=== PATIENT | male | born 1950 | race Caucasian/White ===

== ENCOUNTER 2020-06-08 09:02 | Emergency (ER) | payer OTHER, MEDICARE ==
[~2020-06-08] VITALS: Ht 188 cm; Wt 125.0 kg
[~2020-06-08 09:02] MED LIST: ACET325 PO; ALOGLIPTIN25 MG PO; AMLODIPINE BESY10 MG PO; ASMANEX220 MC3 INH; Aspir 8181 MG PO; BASAGLAR K100 UNIT/1 SC; BUPROPION XL150 M1 PO; CHLO25B PO; FINA5 PO; Glucose4 GM PO; Hydroxyzine HCl50 MG PO; IBUP600 PO; LAMICTAL200 MG PO; METAMUCIL POWD575 GM PO; NOVOLOG FL100 UNIT/1 SC; OXYB5 PO; PANT40 PO; PRAZ5 PO; PREG75 PO; QUET300 PO; RIFA550T2 PO; STIOLTO RESPIMAT4 GM INH; TADALAFIL5 M1 PO; TRULICITY1.5 MG/0.5 SC; VITAMIN D-40010 MCG PO; ZESTRIL40 M1 PO
[2020-06-08] MEDS ORDERED: ALBU90OI INH (09:25)
[2020-06-08] MEDS ORDERED: ATOR20 PO (09:26)
[2020-06-08] MEDS ORDERED: DICLOFENAC SOD100 GM TP (09:28)
--- NOTE | 2020-06-08 11:07 | NUR ---
PT TRANSPORTED TO [facility]. AGREES WITH PLANNED PROCEDURE. DR. DAMON TO SEE PT AND OBTAINED CONSENT. DR. STEVENS INTERVIEWING PT FOR ANESTHESIA.
--- NOTE | 2020-06-08 11:18 | NUR ---
06/08/20 1118 CHRIS TONG History, Chart, Medications and Allergies reviewed before start of procedure. O2 VIA N/C INTACT THROUGHOUT SEDATION/PROCEDURE. 3-LEAD EKG REVIEWED WITH PHYSICIAN PRIOR TO START OF PROCEDURE. MONITOR INTACT WITH CONTINUOUS PULSE OXIMETRY AND INTERMITTENT BP. MAC WITH DR. STEVENS.
--- NOTE | 2020-06-08 12:06 | NUR ---
PT DOING WELL. TOLERATED APPLE JUICE AND CHOCOLATE PUDDING. SITTING UP IN GURNY WATCHING TV WAITING FOR TO ARRIVE. PT STATES NO FURTHER NEEDS AT THIS TIME.
--- NOTE | 2020-06-08 12:28 | NUR ---
PT'S IV D/C'D WNL FROM RIGHT HAND 20 GAUGE. Patient up to Ambulate independently. Gait steady. Discharge instructions reviewed with patient. Patient verbalizes understanding. Copy given to patient to take home. Discharged via wheelchair to private car for ride home.
== END 2020-06-08 11:05 | disposition home or self-care (01) ==
LOC: ER 09:02
DX: T18.108A Unspecified foreign body in esophagus causing other injury, initial encounter (principal); Z79.899 Other long term (current) drug therapy; Z79.4 Long term (current) use of insulin; I10 Essential (primary) hypertension; E11.9 Type 2 diabetes mellitus without complications; F43.10 Post-traumatic stress disorder, unspecified; N40.0 Benign prostatic hyperplasia without lower urinary tract symptoms; Z87.891 Personal history of nicotine dependence; Z88.8 Allergy status to other drugs, medicaments and biological substances; Z20.828 Contact with and (suspected) exposure to other viral communicable diseases
CPT/HCPCS: 70360; 71046; 74018; 96374; 96375; 99285-25; J1610; J2250; J2405; J2704; J7120; U0002

== ENCOUNTER 2021-05-04 20:26 | Emergency (ER) | payer OTHER, MEDICARE ==
[~2021-05-04] VITALS: Ht 193 cm; Wt 81.7 kg
[~2021-05-04 20:26] MED LIST changes: +ALBU90OI INH; +ATOR20 PO; +DICLOFENAC SOD100 GM TP
[2021-05-04 23:08] LABS: BASOPHILS ABSOLUTE AUTO 0.02 K/mm3 (0.00-0.23); BASOPHILS PERCENT AUTO 0 % (0-2); EOSINOPHILS ABSOLUTE AUTO 0.11 K/mm3 (0.00-0.68); EOSINOPHILS PERCENT AUTO 1 % (0-6); Hematocrit 43.7 % (37.0-53.0); Hemoglobin 14.1 g/dL (13.5-17.5); IMMATURE GRAN ABSOLUTE AUTO 0.02 K/mm3 (0.00-0.10); IMMATURE GRAN PERCENT AUTO 0 % (0-1); LYMPHOCYTES ABSOLUTE AUTO 1.33 K/mm3 (0.84-5.20); LYMPHOCYTES PERCENT AUTO 17 % (21-46); MONOCYTES ABSOLUTE AUTO 0.63 K/mm3 (0.16-1.47); MONOCYTES PERCENT AUTO 8 % (4-13); Mean Corpuscular HGB 27.9 pg (26.0-34.0); Mean Corpuscular HGB Conc 32.3 g/dL (31.5-36.5); Mean Corpuscular Volume 86 fL (80-100); Mean Platelet Volume 11.3 fL (9.1-12.4); NEUTROPHILS ABSOLUTE AUTO 5.61 K/mm3 (1.96-9.15); NEUTROPHILS PERCENT AUTO 73 % (41-73); Platelet Count 213 K/mm3 (150-400); RDW Coefficient Variation 14.4 % (11.7-14.2); RDW Standard Deviation 45.9 fL (35.1-46.3); Red Blood Cell Count 5.06 M/mm3 (4.30-5.90); White Blood Cell Count 7.72 K/mm3 (4.00-11.30)
[2021-05-04 23:19] LABS: Source, Urine Clean Catch
[2021-05-04 23:23] LABS: Bilirubin, Urine Neg (Neg); Blood, Urine 2+ (Neg); Glucose Qualitative, Urine 4+ (Neg); Ketones, Urine Neg (Neg); Leukocyte Esterase, Urine Neg (Neg); Nitrite, Urine Neg (Neg); Protein, Urine 1+ (Neg); Urobilinogen, Urine NORM (Normal)
[2021-05-04 23:26] LABS: Alanine Aminotransfer (ALT/SGP 40 U/L (12-78); Albumin, Blood 3.6 g/dL (3.4-5.0); Albumin/Globulin Ratio 0.8 (0.8-1.8); Alk Phos 76 U/L (50-136); Anion Gap 5 mmol/L (6-16); Aspartate Aminotrans (AST/SGOT 21 U/L (12-37); Bilirubin, Total 0.3 mg/dL (0.1-1.0); Blood Urea Nitrogen 16 mg/dL (8-24); Bun/Creatinine Ratio 17.8 (12.0-20.0); CO2, Blood 24 mmol/L (21-32); Calcium, Blood 8.7 mg/dL (8.5-10.1); Chloride, Blood 111 mmol/L (98-108); Globulin, Blood 4.4 g/dL (2.2-4.0); Glomerular Filtration Rate >60 (60-); Glucose, Blood 136 mg/dL (70-99); Potassium, Blood 4.3 mmol/L (3.5-5.5); Sodium, Blood 140 mmol/L (136-145)
[2021-05-04 23:29] LABS: Color, Urine Yellow (P-Yellow)
[2021-05-04 23:30] LABS: Appearance, Urine Clear (Clear); Bacteria Not Seen /hpf; Red Blood Cells, Urine 0-2 /hpf (0-2); Squamous Epithelial Cells Not Seen /hpf (Few); White Blood Cells, Urine Not Seen /hpf (0-5)
[2021-05-05] MEDS ORDERED: ANECREAM515 G1 TOP (00:32)
[2021-05-05] MEDS ORDERED: DOCU100 PO (00:32)
== END 2021-05-05 02:54 | disposition home or self-care (01) ==
LOC: ER 20:26
PROVIDERS: Student in an Organized Health Care Education/Training Program
DX: K64.4 Residual hemorrhoidal skin tags (principal); R10.9 Unspecified abdominal pain; Z79.4 Long term (current) use of insulin; Z79.899 Other long term (current) drug therapy
CPT/HCPCS: 74177; 80053; 81001; 82272; 85025; 96374-59; 99284-25; J1885; J7030; Q9967

== ENCOUNTER 2021-08-17 18:05 | Emergency (ER) | payer OTHER ==
[~2021-08-17] VITALS: Ht 193 cm; Wt 131.5 kg
[~2021-08-17 18:05] MED LIST changes: +ANECREAM515 G1 TOP; +DOCU100 PO
[2021-08-17 18:26] LABS: BASOPHILS ABSOLUTE AUTO 0.03 K/mm3 (0.00-0.23); BASOPHILS PERCENT AUTO 0 % (0-2); EOSINOPHILS ABSOLUTE AUTO 0.15 K/mm3 (0.00-0.68); EOSINOPHILS PERCENT AUTO 2 % (0-6); Hematocrit 37.2 % (37.0-53.0); Hemoglobin 12.3 g/dL (13.5-17.5); IMMATURE GRAN ABSOLUTE AUTO 0.06 K/mm3 (0.00-0.10); IMMATURE GRAN PERCENT AUTO 1 % (0-1); LYMPHOCYTES ABSOLUTE AUTO 1.98 K/mm3 (0.84-5.20); LYMPHOCYTES PERCENT AUTO 22 % (21-46); MONOCYTES ABSOLUTE AUTO 1.06 K/mm3 (0.16-1.47); MONOCYTES PERCENT AUTO 12 % (4-13); Mean Corpuscular HGB 27.7 pg (26.0-34.0); Mean Corpuscular HGB Conc 33.1 g/dL (31.5-36.5); Mean Corpuscular Volume 84 fL (80-100); Mean Platelet Volume 11.4 fL (9.1-12.4); NEUTROPHILS ABSOLUTE AUTO 5.81 K/mm3 (1.96-9.15); NEUTROPHILS PERCENT AUTO 64 % (41-73); Platelet Count 201 K/mm3 (150-400); RDW Coefficient Variation 14.6 % (11.7-14.2); RDW Standard Deviation 44.8 fL (35.1-46.3); Red Blood Cell Count 4.44 M/mm3 (4.30-5.90); White Blood Cell Count 9.09 K/mm3 (4.00-11.30)
[2021-08-17 18:50] LABS: Alanine Aminotransfer (ALT/SGP 29 U/L (12-78); Albumin, Blood 3.4 g/dL (3.4-5.0); Albumin/Globulin Ratio 0.7 (0.8-1.8); Alk Phos 74 U/L (50-136); Anion Gap 8 mmol/L (6-16); Aspartate Aminotrans (AST/SGOT 37 U/L (12-37); Bilirubin, Total 0.6 mg/dL (0.1-1.0); Blood Urea Nitrogen 13 mg/dL (8-24); Bun/Creatinine Ratio 12.9 (12.0-20.0); CO2, Blood 23 mmol/L (21-32); Calcium, Blood 8.9 mg/dL (8.5-10.1); Chloride, Blood 105 mmol/L (98-108); Creatinine, Blood 1.01 mg/dL (0.60-1.20); Globulin, Blood 4.7 g/dL (2.2-4.0); Glomerular Filtration Rate >60 (60-); Glucose, Blood 109 mg/dL (70-99); Potassium, Blood 3.7 mmol/L (3.5-5.5); Sodium, Blood 136 mmol/L (136-145); Total Protein, Blood 8.1 g/dL (6.4-8.2)
[2021-08-17 18:51] LABS: Troponin I <0.015 ng/mL (0.000-0.040)
[2021-08-17 21:27] LABS: Source, Urine Voided
[2021-08-17 21:35] LABS: Appearance, Urine Clear (Clear); Bilirubin, Urine Neg (Neg); Blood, Urine Neg (Neg); Color, Urine Yellow (P-Yellow); Glucose Qualitative, Urine Neg (Neg); Ketones, Urine Neg (Neg); Leukocyte Esterase, Urine Neg (Neg); Nitrite, Urine Neg (Neg); Protein, Urine Neg (Neg); Specific Gravity, Urine 1.005 (1.003-1.022); Urobilinogen, Urine NORM (Normal)
== END 2021-08-17 21:54 | disposition home or self-care (01) ==
LOC: ER 18:05
PROVIDERS: Emergency Medicine
DX: R07.89 Other chest pain (principal); R06.02 Shortness of breath; I10 Essential (primary) hypertension; E11.9 Type 2 diabetes mellitus without complications; N40.0 Benign prostatic hyperplasia without lower urinary tract symptoms; J44.9 Chronic obstructive pulmonary disease, unspecified; Z91.048 Other nonmedicinal substance allergy status; Z88.8 Allergy status to other drugs, medicaments and biological substances; Z79.899 Other long term (current) drug therapy; Z79.4 Long term (current) use of insulin
CPT/HCPCS: 36415; 71260; 80053; 81003; 82947; 83880; 84484; 85025; 93005; 93010; 99285-25; Q9967

== ENCOUNTER 2021-10-01 22:43 | Emergency (ER) | payer OTHER ==
[~2021-10-01] VITALS: Ht 193 cm; Wt 86.2 kg
[2021-10-01] MEDS ORDERED: VICODIN HP 10-1 EAC1 (23:11)
[2021-10-01] MEDS ORDERED: TRAM50 (23:11)
[2021-10-01] MEDS ORDERED: ASPI81CH PO (23:12)
== END 2021-10-02 01:02 | disposition home or self-care (01) ==
LOC: ER 22:43
DX: E11.649 Type 2 diabetes mellitus with hypoglycemia without coma (principal); I10 Essential (primary) hypertension; J44.9 Chronic obstructive pulmonary disease, unspecified; N40.0 Benign prostatic hyperplasia without lower urinary tract symptoms; Z88.8 Allergy status to other drugs, medicaments and biological substances; Z79.899 Other long term (current) drug therapy; Z79.82 Long term (current) use of aspirin; Z79.4 Long term (current) use of insulin
CPT/HCPCS: 82947; 99284

== ENCOUNTER 2022-07-25 15:27 | Emergency (ER) | payer OTHER ==
[~2022-07-25] VITALS: Ht 193 cm; Wt 133.8 kg
[~2022-07-25 15:27] MED LIST changes: +ASPI81CH PO; +TRAM50; +VICODIN HP 10-1 EAC1
[2022-07-25] MEDS ORDERED: Robaxin750 MG PO ×2 (17:29→17:41)
== END 2022-07-25 17:42 | disposition home or self-care (01) ==
LOC: ER 15:27
DX: S39.012A Strain of muscle, fascia and tendon of lower back, initial encounter (principal); J44.9 Chronic obstructive pulmonary disease, unspecified; E11.9 Type 2 diabetes mellitus without complications; I10 Essential (primary) hypertension; V89.2XXA Person injured in unspecified motor-vehicle accident, traffic, initial encounter; Z79.82 Long term (current) use of aspirin; Z79.4 Long term (current) use of insulin; Z79.899 Other long term (current) drug therapy; Z87.891 Personal history of nicotine dependence
CPT/HCPCS: 72070; 72100; 73010; 99283-25; A9270

== ENCOUNTER 2022-10-24 18:57 | Observation (INO) | payer OTHER ==
[~2022-10-24] VITALS: Ht 193 cm; Wt 135.6 kg
[~2022-10-24 18:57] MED LIST changes: +Robaxin750 MG PO
[2022-10-24] MEDS ORDERED: CALCIPOTRIENE60 G1 (19:21)
[2022-10-24] MEDS ORDERED: LABE200 PO (19:21)
[2022-10-24] MEDS ORDERED: CLOBETASOL EMOL15 G1 (19:21)
[2022-10-24] MEDS ORDERED: CHLO25B PO (19:22)
[2022-10-24] MEDS ORDERED: AMLO10 PO (19:22)
[2022-10-24] MEDS ORDERED: ATOR10 PO (19:22)
[2022-10-24] MEDS ORDERED: ATROVENT HFA12.9 GM INH (19:22)
[2022-10-24] MEDS ORDERED: TADA10TA (19:23)
[2022-10-24] MEDS ORDERED: INSULANI SC (19:23)
[2022-10-24] MEDS ORDERED: ALDACTONE25 MG PO (19:23)
[2022-10-24] MEDS ORDERED: LISI20 PO (19:23)
[2022-10-24] MEDS ORDERED: CELE200 PO (19:24)
[2022-10-24] MEDS ORDERED: ALOGLIPTIN25 M1 (19:25)
[2022-10-24] MEDS ORDERED: SUBVENITE PO (19:25)
[2022-10-24] MEDS ORDERED: PRAZ5 PO (19:25)
[2022-10-24] MEDS ORDERED: HYDHCL25 PO (19:25)
[2022-10-24 19:30] LABS: BASOPHILS ABSOLUTE AUTO 0.04 K/mm3 (0.00-0.23); BASOPHILS PERCENT AUTO 1 % (0-2); EOSINOPHILS PERCENT AUTO 3 % (0-6); Hematocrit 34.1 % (37.0-53.0); Hemoglobin 11.9 g/dL (13.5-17.5); IMMATURE GRAN ABSOLUTE AUTO 0.05 K/mm3 (0.00-0.10); IMMATURE GRAN PERCENT AUTO 1 % (0-1); LYMPHOCYTES ABSOLUTE AUTO 1.78 K/mm3 (0.84-5.20); LYMPHOCYTES PERCENT AUTO 25 % (21-46); MONOCYTES ABSOLUTE AUTO 0.62 K/mm3 (0.16-1.47); MONOCYTES PERCENT AUTO 9 % (4-13); Mean Corpuscular HGB 29.7 pg (26.0-34.0); Mean Corpuscular HGB Conc 34.9 g/dL (31.5-36.5); Mean Corpuscular Volume 85 fL (80-100); Mean Platelet Volume 10.9 fL (9.1-12.4); NEUTROPHILS ABSOLUTE AUTO 4.48 K/mm3 (1.96-9.15); NEUTROPHILS PERCENT AUTO 63 % (41-73); Platelet Count 210 K/mm3 (150-400); RDW Coefficient Variation 12.7 % (11.7-14.2); RDW Standard Deviation 39.5 fL (35.1-46.3); Red Blood Cell Count 4.01 M/mm3 (4.30-5.90); White Blood Cell Count 7.17 K/mm3 (4.00-11.30)
[2022-10-24 19:48] LABS: Albumin, Blood 3.8 g/dL (3.4-5.0); Albumin/Globulin Ratio 0.9 (0.8-1.8); Bilirubin, Total 0.6 mg/dL (0.1-1.0); Bun/Creatinine Ratio 30.1 (12.0-20.0); Calcium, Blood 9.2 mg/dL (8.5-10.1); Creatinine, Blood 1.83 mg/dL (0.60-1.20); Globulin, Blood 4.2 g/dL (2.2-4.0); Potassium, Blood 4.7 mmol/L (3.5-5.5)
[2022-10-25 03:33] LABS: Source, Urine Clean Catch
[2022-10-25 03:40] LABS: Bilirubin, Urine Neg (Neg); Blood, Urine Neg (Neg); Glucose Qualitative, Urine Neg (Neg); Ketones, Urine Neg (Neg); Leukocyte Esterase, Urine Neg (Neg); Nitrite, Urine Neg (Neg); Protein, Urine 1+ (Neg); Specific Gravity, Urine 1.005 (1.003-1.022); Urobilinogen, Urine NORM (Normal)
[2022-10-25 04:07] LABS: Appearance, Urine Clear (Clear); Color, Urine Pale Yellow (P-Yellow)
[2022-10-25 05:07] LABS: BASOPHILS ABSOLUTE AUTO 0.03 K/mm3 (0.00-0.23); BASOPHILS PERCENT AUTO 1 % (0-2); EOSINOPHILS ABSOLUTE AUTO 0.13 K/mm3 (0.00-0.68); EOSINOPHILS PERCENT AUTO 2 % (0-6); Hematocrit 33.6 % (37.0-53.0); Hemoglobin 11.5 g/dL (13.5-17.5); IMMATURE GRAN ABSOLUTE AUTO 0.02 K/mm3 (0.00-0.10); IMMATURE GRAN PERCENT AUTO 0 % (0-1); LYMPHOCYTES PERCENT AUTO 19 % (21-46); MONOCYTES ABSOLUTE AUTO 0.59 K/mm3 (0.16-1.47); MONOCYTES PERCENT AUTO 9 % (4-13); Mean Corpuscular HGB 29.3 pg (26.0-34.0); Mean Corpuscular HGB Conc 34.2 g/dL (31.5-36.5); Mean Corpuscular Volume 86 fL (80-100); Mean Platelet Volume 11.1 fL (9.1-12.4); NEUTROPHILS ABSOLUTE AUTO 4.52 K/mm3 (1.96-9.15); NEUTROPHILS PERCENT AUTO 70 % (41-73); Platelet Count 208 K/mm3 (150-400); RDW Standard Deviation 40.2 fL (35.1-46.3); Red Blood Cell Count 3.92 M/mm3 (4.30-5.90); White Blood Cell Count 6.49 K/mm3 (4.00-11.30)
[2022-10-25 05:37] LABS: Albumin, Blood 3.6 g/dL (3.4-5.0); Albumin/Globulin Ratio 0.9 (0.8-1.8); Bilirubin, Total 0.4 mg/dL (0.1-1.0); Bun/Creatinine Ratio 30.1 (12.0-20.0); Calcium, Blood 9.1 mg/dL (8.5-10.1); Creatinine, Blood 1.46 mg/dL (0.60-1.20); Globulin, Blood 3.9 g/dL (2.2-4.0); Potassium, Blood 4.5 mmol/L (3.5-5.5); Total Protein, Blood 7.5 g/dL (6.4-8.2)
[2022-10-25] MEDS ORDERED: HYDCOR2.5C TOP (14:11)
--- NOTE | 2022-10-25 18:33 | NUR ---
Patient doing well this morning, denied dizziness, reported fainting spell that brought him into ED. Ambulated independently to bathroom from ED bed. Admitted to Medical floor at 1200. [address], NSR @ 75. CBGs 198-234, SSI given today. Gentle hydration in ED, educated patient on importance of drinking water, patient prefers drinking coffee. Vitals stable. Will continue plan of care.
--- NOTE | 2022-10-25 18:56 | NUR ---
Patient has small open wound son ABD & right arm, old scarring noted. Patient reports picking & scratching skin. Small red blister located on ABD. Patient also reports "eczema" rash t/o body, requesting hydrocortisone cream, reports this is a home med. Wound documentation in hard chart.
[2022-10-26 05:28] LABS: Bun/Creatinine Ratio 24.4 (12.0-20.0); Calcium, Blood 9.2 mg/dL (8.5-10.1); Creatinine, Blood 1.23 mg/dL (0.60-1.20)
--- NOTE | 2022-10-26 06:13 | NUR ---
TELEVISION ENGINEER SUMMARY NO ACUTE EVENTS. PT A/OX4. PT HAS IV ACCESS IN EACH ARM; SALINE LOCKED. VITAL SIGNS REVIEWED/STABLE. ON TELE--NORMAL SINUS 70 BPM. HS BLOOD SUGAR 150; NO COVERAGE. PT DENIES DIZZINESS/SOB. SLEPT WELL T/O THE NIGHT. ABLE TO MAKE NEEDS KNONW. PT ON CPAPA WHEN SLEEPING. CALL LIGHT IN REACH.
--- NOTE | 2022-10-26 17:32 | NUR ---
DAYSHIFT SUMMARY Patient doing well today, ortho vitals compeleted this morning, BP trending up with sitting & standing. No complaints of dizziness/syncope this shift. MD ordered cardiology consult. Plan is to do stress test tomorrow, and heart center will come to patients room to apply Zio patch. Pipe Insulator stated she wanted to review his medications as well. RN spoke to daughter, patients daughter is concerned about polypharmacy, stated patient takes several medications and does not know name/reason for medications. She would like MD to assist with med reconciliation before discharge back home. Vitals stable, CBG WNL, 1unit of insulin given with each meal today. Will continue plan of care.
--- NOTE | 2022-10-27 04:09 | NUR ---
SHIFT SUMMARY; AT THE BEGINNING OF SHIFT THE PT STATED THAT HE FELT A BIT DIZZY AND THAT HIS LOWER LEGS AND BOTTOM OF HIS FEET FELT TINGLY. HOWEVER, AFTER JUST A FEW MINUTES THE PT FELT BACK TO NORMAL. PT WITH NO OTHER ACUTE CHANGES OVERNIGHT. TELE IN PLACE, NSR IN THE 60'S. THE PT REMAINS INDEPENDENT IN THE ROOM. CURRENTLY THE PT IS SLEEPING IN BED WITH HIS CPAP IN PLACE, THE BED IN THE LOWEST POSITION AND THE CALL LIGHT AT BEDSIDE.
--- NOTE | 2022-10-27 08:00 | NUR ---
pt sitting up on the side of the bed wanting to get in the shower, a/ox3, pleasant and cooperative with care, follows commands well, denies pain, lungs are clear a bit dim in bases, on r/a, resp even and unlabored, no cough noted, hrr, distant, tele in place, running sr per monitor, see strip, no edema noted, ppp+1, cap refill <3 sec, vs stable, afebrile, iv sites are clear and patent, btx4, abd flat soft nontender, voids without diff, skin c/w/d, except for scattered scabs, maew, ambulates indep, fabiola, call light in reach.
--- NOTE | 2022-10-27 19:34 | NUR ---
pt had a panic attack tonight, felt like he couldn't breath, is breathing hard and pacing the halls, states it happens at home at times and does take something, but doesn't know what, call to Dr. Roblero, recieved order for 0.5mg iv ativan, this was given with good results, he reported he felt much better, will keep npo after midnight, except water, and have second part of stress test tomorrow am at 0800. call light in reach.
--- NOTE | 2022-10-28 04:08 | NUR ---
SHIFT SUMMARY; NO ACUTE CHANGES OVERNIGHT. THE PT SLEPT IN BED T/O THE NIGHT. TELE IS ON, NSR 60/70'S. THE PT DENIES ANY PAIN OR SOB THIS SHIFT. CURRENTLY THE PT IS RESTING IN BED WITH THE BED IN THE LOWEST POSITION AND THE CALL LIGHT AT BEDSIDE.
[2022-10-28 05:08] LABS: BASOPHILS ABSOLUTE AUTO 0.03 K/mm3 (0.00-0.23); BASOPHILS PERCENT AUTO 0 % (0-2); EOSINOPHILS ABSOLUTE AUTO 0.15 K/mm3 (0.00-0.68); EOSINOPHILS PERCENT AUTO 2 % (0-6); Hematocrit 35.2 % (37.0-53.0); Hemoglobin 12.2 g/dL (13.5-17.5); IMMATURE GRAN ABSOLUTE AUTO 0.03 K/mm3 (0.00-0.10); IMMATURE GRAN PERCENT AUTO 0 % (0-1); LYMPHOCYTES PERCENT AUTO 26 % (21-46); MONOCYTES ABSOLUTE AUTO 0.81 K/mm3 (0.16-1.47); MONOCYTES PERCENT AUTO 12 % (4-13); Mean Corpuscular HGB 29.3 pg (26.0-34.0); Mean Corpuscular HGB Conc 34.7 g/dL (31.5-36.5); Mean Corpuscular Volume 84 fL (80-100); Mean Platelet Volume 10.6 fL (9.1-12.4); NEUTROPHILS ABSOLUTE AUTO 4.22 K/mm3 (1.96-9.15); NEUTROPHILS PERCENT AUTO 60 % (41-73); Platelet Count 223 K/mm3 (150-400); RDW Coefficient Variation 12.6 % (11.7-14.2); RDW Standard Deviation 38.5 fL (35.1-46.3); Red Blood Cell Count 4.17 M/mm3 (4.30-5.90); White Blood Cell Count 7.04 K/mm3 (4.00-11.30)
[2022-10-28 05:40] LABS: Bun/Creatinine Ratio 26.5 (12.0-20.0); Calcium, Blood 8.9 mg/dL (8.5-10.1); Creatinine, Blood 1.13 mg/dL (0.60-1.20); Potassium, Blood 3.8 mmol/L (3.5-5.5)
--- NOTE | 2022-10-28 09:11 | NUR ---
pt had first part of his stress test this am, ate breakfast, doing ok, a/ox3, cooperative with care, follows commands well, denies pain, lungs clear on r/a, resp even and unlabore, no cough noted, hrr, tele in place running sr per monitor, see strip, no edema noted, ppp+2, cap refill <3sec, vs stable, afebrie, iv site is clear and patent, btx4, abd round soft nontender, voids without diff, reports reg bm's, skin has scattered scabs, no open areas, maew, ambulates indep, fabiola, call light in reach.
[2022-10-28] MEDS ORDERED: LISI5 PO (15:12)
--- NOTE | 2022-10-28 16:08 | NUR ---
Pt has been discharged to home, went over discharge instructions with pt and his , they verbalized understanding, iv x3 removed intact, face sheet faxed to [facility] rehab, new meds faxed to [facility], explained his follow up appts, left via wheelchair with all belongings and community development officer in attendence.
== END 2022-10-28 16:05 | disposition home or self-care (01) ==
LOC: ER 18:57 → ERHOLD 18:58 → ER 10-25 02:34 → MEDS 10-25 02:34 → ERHOLD 10-25 12:46 → MEDS 10-28 16:05
PROVIDERS: Emergency Medicine; Internal Medicine; ADMIT Internal Medicine
DX: R55 Syncope and collapse (principal); N17.9 Acute kidney failure, unspecified; R07.9 Chest pain, unspecified; G47.33 Obstructive sleep apnea (adult) (pediatric); E11.9 Type 2 diabetes mellitus without complications; G47.00 Insomnia, unspecified; J44.9 Chronic obstructive pulmonary disease, unspecified; N40.0 Benign prostatic hyperplasia without lower urinary tract symptoms; F43.10 Post-traumatic stress disorder, unspecified
CPT/HCPCS: 36415; 71045; 71260; 76770; 78452; 80048; 80053; 82947; 83880; 84484; 85025; 93005; 93010; 93017; 93246; 93306; 94640; 94664; 94760; 96372; 96374; 99285-25; A9270; A9500; G0378; J0280; J1650; J1815; J2060; J2785; J7030; Q9967

== ENCOUNTER 2024-12-14 13:58 | Emergency (ER) | payer OTHER ==
[~2024-12-14] VITALS: Ht 193 cm; Wt 133.4 kg
[~2024-12-14 13:58] MED LIST changes: +ALDACTONE25 MG PO; +ALOGLIPTIN25 M1; +AMLO10 PO; +ATOR10 PO; +ATROVENT HFA12.9 GM INH; +CALCIPOTRIENE60 G1; +CELE200 PO; +CLOBETASOL EMOL15 G1; +HYDCOR2.5C TOP; +HYDHCL25 PO; +INSULANI SC; +LABE200 PO; +LISI20 PO; +LISI5 PO; +SUBVENITE PO; +TADA10TA
[2024-12-14 15:57] LABS: BASOPHILS ABSOLUTE AUTO 0.05 K/mm3 (0.00-0.23); BASOPHILS PERCENT AUTO 1 % (0-2); EOSINOPHILS ABSOLUTE AUTO 0.19 K/mm3 (0.00-0.68); EOSINOPHILS PERCENT AUTO 2 % (0-6); Hematocrit 44.5 % (37.0-53.0); Hemoglobin 14.5 g/dL (13.5-17.5); IMMATURE GRAN ABSOLUTE AUTO 0.05 K/mm3 (0.00-0.10); IMMATURE GRAN PERCENT AUTO 1 % (0-1); LYMPHOCYTES ABSOLUTE AUTO 1.74 K/mm3 (0.84-5.20); LYMPHOCYTES PERCENT AUTO 21 % (21-46); MONOCYTES PERCENT AUTO 9 % (4-13); Mean Corpuscular HGB 28.2 pg (26.0-34.0); Mean Corpuscular HGB Conc 32.6 g/dL (31.5-36.5); Mean Corpuscular Volume 87 fL (80-100); Mean Platelet Volume 10.2 fL (9.1-12.4); NEUTROPHILS ABSOLUTE AUTO 5.43 K/mm3 (1.96-9.15); NEUTROPHILS PERCENT AUTO 67 % (41-73); Platelet Count 248 K/mm3 (150-400); RDW Coefficient Variation 14.7 % (11.7-14.2); RDW Standard Deviation 46.7 fL (35.1-46.3); Red Blood Cell Count 5.14 M/mm3 (4.30-5.90); White Blood Cell Count 8.16 K/mm3 (4.00-11.30)
[2024-12-14 16:23] LABS: Albumin, Blood 3.7 g/dL (3.4-5.0); Albumin/Globulin Ratio 0.8 (0.8-1.8); Bilirubin, Total 0.4 mg/dL (0.1-1.0); Bun/Creatinine Ratio 17.5 (12.0-20.0); Creatinine, Blood 0.97 mg/dL (0.60-1.20); Globulin, Blood 4.7 g/dL (2.2-4.0); Potassium, Blood 4.5 mmol/L (3.5-5.5); Total Protein, Blood 8.4 g/dL (6.4-8.2)
[2024-12-14 18:15] VITALS: BP 149/72
== END 2024-12-14 19:14 | disposition home or self-care (01) ==
LOC: ER 13:58
PROVIDERS: Emergency Medicine
DX: E11.649 Type 2 diabetes mellitus with hypoglycemia without coma (principal); I10 Essential (primary) hypertension; J44.9 Chronic obstructive pulmonary disease, unspecified; Z87.891 Personal history of nicotine dependence; Z88.8 Allergy status to other drugs, medicaments and biological substances; Z88.5 Allergy status to narcotic agent; Z91.048 Other nonmedicinal substance allergy status; Z79.899 Other long term (current) drug therapy; Z79.4 Long term (current) use of insulin
CPT/HCPCS: 80053; 82947; 84484; 85025; 93005; 93010; 99284-25